=== PATIENT | male | born 1990 | race African-American/Black ===

== ENCOUNTER 2020-09-18 15:04 | Emergency (ER) | payer MEDICAID ==
[~2020-09-18] VITALS: Ht 170.2 cm; Wt 67.5 kg
[2020-09-18] MEDS ORDERED: TETANUS, DIPHTHERIA, PERTUSSIS VAC/PF 0.5ML (>7YR OLD) IM ONE (16:15)
[2020-09-18] MEDS ORDERED: MORPHINE SULFATE 4 MG/ML CPJ (NOT FOR IM USE) IV ONE ×2 (19:15→20:45)
[2020-09-18] MEDS ORDERED: HYDR-4346 MT (21:13)
[2020-09-18 21:27] VITALS: BP 148/99
== END 2020-09-18 21:29 | disposition home or self-care (01) ==
LOC: ER 15:04 → EDSEX 15:04 → ER 21:29
DX: S62.307A Unspecified fracture of fifth metacarpal bone, left hand, initial encounter for closed fracture (principal); W18.30XA Fall on same level, unspecified, initial encounter; Y93.89 Activity, other specified; Y92.89 Other specified places as the place of occurrence of the external cause; Y99.8 Other external cause status
CPT/HCPCS: 26605; 73120; 73130; 90471; 90715; 99284; J2270; Z7610